=== PATIENT | female | born 1935 | race Caucasian/White ===

== ENCOUNTER 2018-06-05 08:45 | Outpatient (CLI) | payer OTHER | END 2018-06-05 08:53 | disposition home or self-care (01) | LOC: LAB 08:45 | DX: E11.9 Type 2 diabetes mellitus without complications (principal); Z12.11 Encounter for screening for malignant neoplasm of colon; D64.89 Other specified anemias; M19.90 Unspecified osteoarthritis, unspecified site; E78.49 Other hyperlipidemia; E03.8 Other specified hypothyroidism; E55.9 Vitamin D deficiency, unspecified; D51.8 Other vitamin B12 deficiency anemias; N39.0 Urinary tract infection, site not specified; Z13.0 Encounter for screening for diseases of the blood and blood-forming organs and certain disorders involving the immune mechanism; R19.5 Other fecal abnormalities ==

== ENCOUNTER 2022-08-28 09:35 | Outpatient (CLI) | payer OTHER | END 2022-08-28 09:42 | disposition home or self-care (01) | LOC: LAB 09:35 | DX: D64.9 Anemia, unspecified (principal); E03.9 Hypothyroidism, unspecified; E55.9 Vitamin D deficiency, unspecified; E56.9 Vitamin deficiency, unspecified; D51.0 Vitamin B12 deficiency anemia due to intrinsic factor deficiency; E78.5 Hyperlipidemia, unspecified; M79.18 Myalgia, other site; E53.9 Vitamin B deficiency, unspecified; D52.8 Other folate deficiency anemias ==